=== PATIENT | female | born 2000 | race Caucasian/White ===

== ENCOUNTER 2022-11-19 04:38 | Emergency (ER) | payer OTHER ==
[2022-11-19 04:55] VITALS: BMI 29.6
[2022-11-19] MEDS ORDERED: ELECTROLYTE-148 SOLN 500 ML IV SCH ×2 (07:30→08:00)
[2022-11-19 08:03] VITALS: RESP 18
[2022-11-19 08:53] VITALS: BP 128/76; PULSE 70; TEMP 98.3
[2022-11-19 12:01] LABS: URINE APPEARANCE CLEAR; URINE BILIRUBIN NEGATIVE (NEGATIVE); URINE COLOR YELLOW; URINE GLUCOSE (UA) NEGATIVE (NEGATIVE); URINE KETONE NEGATIVE (NEGATIVE); URINE LEUK ESTERASE NEGATIVE (NEGATIVE); URINE NITRITE NEGATIVE (NEGATIVE); URINE PROTEIN NEGATIVE (NEGATIVE); URINE UROBILINOGEN 0.2 mg/dL (0.2-1.0)
[2022-12-16] MEDS ORDERED: FENTANYL CITRATE/PF 50 MCG/ML VIAL ONE (15:05)
[2022-12-16] MEDS ORDERED: LIDO 2%/EPI 1:200000 PRESRVFRE (20 ML SDVIAL) ONE ×2 (15:05)
[2022-12-16] MEDS ORDERED: BUPIVACAINE HCL/PF 0.25% (2.5MG/ML) 10 ML VIAL ONE (15:05)
== END 2022-11-19 09:30 | disposition home or self-care (01) ==
LOC: JER 04:38
PROC: 3E033GC Introduction of Other Therapeutic Substance into Peripheral Vein, Percutaneous Approach (ICD-10-PCS; principal; 2022-11-19)
PROC: 3E033GC Introduction of Other Therapeutic Substance into Peripheral Vein, Percutaneous Approach (ICD-10-PCS; 2022-11-19)
DX: O60.03 Preterm labor without delivery, third trimester (principal); O99.413 Diseases of the circulatory system complicating pregnancy, third trimester; R07.9 Chest pain, unspecified; Z3A.37 37 weeks gestation of pregnancy
CPT/HCPCS: 71046-TC-FY; 81003; 93005; 93010; 99285-25

== ENCOUNTER 2022-12-15 08:35 | Inpatient (IN) | payer OTHER ==
[2022-12-15] MEDS ORDERED: DINOPROSTONE 10 MG VAGINAL SUPPOSITORY VG STA ×2 (09:37→21:28)
[2022-12-15 09:59] VITALS: BMI 34.4
[2022-12-15] MEDS: ELECTROLYTE-148 SOLN 1,000 ML IV SCH ×3 (10:05→22:00)
[2022-12-15 11:12] LABS: INR 0.91 (0.83-1.09); PROTHROMBIN TIME (PATIENT) 10.6 SEC (9.7-13.0)
[2022-12-15 11:15] LABS: ACTIVATED PTT 28.4 SECONDS (25.2-36.5)
[2022-12-15 11:22] LABS: EOS % 1.2 % (0-4.5); HEMATOCRIT 32.5 % (32.4-45.2); HEMOGLOBIN 11.2 GM/dL (10.7-15.3); LYMPH % 31.4 % (8-40); MCH 29.5 pg (25.7-33.7); MCHC 34.6 g/dl (32.0-36.0); MEAN CELL VOLUME 85.4 fl (80-96); MEAN PLT VOLUME 9.6 fl (7.5-11.1); MONO % 7.8 % (3.8-10.2); NEUT % 58.6 % (42.8-82.8); PLATELET COUNT 281 10^3/uL (134-434); RBC 3.81 M/mm3 (3.60-5.2); RDW 14.2 % (11.6-15.6); WHITE BLOOD COUNT 8.4 K/mm3 (4.0-10.0)
[2022-12-15 11:28] LABS: CALCIUM 8.7 mg/dL (8.5-10.1)
[2022-12-15 11:29] LABS: BLOOD UREA NITROGEN 12.3 mg/dL (7-18)
[2022-12-15 11:32] LABS: CREATININE 0.5 mg/dL (0.55-1.3)
[2022-12-15] MEDS ORDERED: DINOPROSTONE 10 MG VAGINAL SUPPOSITORY VG ONE (21:25)
[2022-12-15] MEDS ORDERED: PROMETHAZINE HCL 25 MG/1 ML VIAL IVPB ONE (22:16)
[2022-12-15] MEDS ORDERED: BUTORPHANOL TARTRATE 1 MG/ML VIAL IVPB ONE (22:16)
[2022-12-16] MEDS: ELECTROLYTE-148 SOLN 1,000 ML IV SCH ×3 (06:00→16:17)
[2022-12-16] MEDS ORDERED: OXYTOCIN 30 UNITS in 0.9% NS 30 UNIT/500 ML INFUS.BAG IVPB ONE (11:28)
[2022-12-16] MEDS ORDERED: OXYTOCIN 30 UNITS in 0.9% NS 30 UNIT/500 ML INFUS.BAG IVPB SCH (11:30)
[2022-12-16] MEDS ORDERED: BUTORPHANOL TARTRATE 1 MG/ML VIAL ONE (12:57)
[2022-12-16] MEDS ORDERED: PROMETHAZINE HCL 25 MG/1 ML VIAL ONE (12:57)
[2022-12-16] MEDS ORDERED: FENTANYL/BUPIVACAINE/NS/PF - PCEA - 50 ML DISP.SYRIN EP ONE ×3 (14:59→22:19)
[2022-12-16] MEDS: FENTANYL/BUPIVACAINE/NS/PF - PCEA - 50 ML DISP.SYRIN EP SCH ×3 (15:05→22:20)
[2022-12-16] MEDS ORDERED: NALOXONE HCL 0.4 MG/ML VIAL IVPUSH PRN (17:29)
[2022-12-16] MEDS ORDERED: BUPIVACAINE HCL/PF 0.25% (2.5MG/ML) 10 ML VIAL ONE (18:36)
[2022-12-17] MEDS ORDERED: FENTANYL/BUPIVACAINE/NS/PF - PCEA - 50 ML DISP.SYRIN EP ONE (00:58)
[2022-12-17] MEDS ORDERED: FENTANYL CITRATE/PF 50 MCG/ML VIAL ONE ×5 (01:18→07:54)
[2022-12-17] MEDS ORDERED: CITRIC ACID/SODIUM CITRATE 30 ML UNIT-DOSE CUP PO ONE (03:20)
[2022-12-17] MEDS ORDERED: morphine SULFATE/PF 1 MG/2 ML (2cc Syringe - QUVA) ONE (03:56)
[2022-12-17] MEDS ORDERED: SODIUM CHLORIDE 0.9% P/F 10 ML VIAL IJ ONE (03:57)
[2022-12-17] MEDS ORDERED: ceFAZolin SODIUM 1 GM VIAL ONE (03:57)
[2022-12-17] MEDS ORDERED: PROPOFOL 20 ML ONE (04:48)
[2022-12-17] MEDS ORDERED: SUCCINYLCHOLINE CHLORIDE 200 MG/10 ML SYRINGE ONE (04:49)
[2022-12-17] MEDS ORDERED: ROCURONIUM BROMIDE 50 MG/5 ML VIAL ONE (04:49)
[2022-12-17] MEDS ORDERED: OXYTOCIN 10 UNITS/ML VIAL ONE ×3 (04:57→05:26)
[2022-12-17] MEDS: OXYTOCIN 20 UNITS in 0.9% NS 20 UNIT/1,000 ML INFUS.BAG IV SCH ×2 (04:59→17:24)
[2022-12-17] MEDS ORDERED: KETOROLAC TROMETHAMINE 30 MG/1 ML VIAL ONE (05:06)
[2022-12-17] MEDS ORDERED: ONDANSETRON 4 MG/2 ML VIAL ONE (05:06)
[2022-12-17] MEDS ORDERED: DEXAMETHASONE SOD PHOSPHATE 4 MG/1 ML VIAL ONE (05:06)
[2022-12-17] MEDS ORDERED: MIDAZOLAM HCL 2 MG/2 ML SINGLE DOSE VIAL ONE (05:24)
[2022-12-17] MEDS ORDERED: ONDANSETRON 4 MG/2 ML VIAL IVPUSH PRN (06:03)
[2022-12-17] MEDS ORDERED: PROMETHAZINE HCL 25 MG/1 ML VIAL IVPB PRN (06:03)
[2022-12-17] MEDS ORDERED: IBUPROFEN 800 MG/8 ML IJ IVPB PRN (06:04)
[2022-12-17] MEDS ORDERED: METHYLERGONOVINE MALEATE 0.2 MG/1 ML AMP IM PRN (06:10)
[2022-12-17] MEDS ORDERED: ACETAMINOPHEN 325 MG TABLET (FP) PO PRN (06:10)
[2022-12-17] MEDS ORDERED: LACTATED RINGERS SOLUTION 1,000 ML IV SCH (06:15)
[2022-12-17] MEDS ORDERED: ACETAMINOPHEN INJECTION 100 ML IVPB ONE (06:48)
[2022-12-17] MEDS: ACETAMINOPHEN 1000 MG/100 ML BAG IVPB PRN (06:50)
[2022-12-17 06:52] LABS: CORD BASE EXCESS -3.5 mmol/L (0-2); CORD HCO3 23.9 mmHg (20-29); CORD PCO2 50.8 mmHg (30-78); CORD pH 7.29 (7.14-7.44)
[2022-12-17 06:55] LABS: CORD BASE EXCESS -3.8 mmol/L (0-2); CORD HCO3 25.1 mmHg (20-29); CORD pH 7.239 (7.14-7.44)
[2022-12-17] MEDS ORDERED: HYDROmorphone HCl 2 MG/ML VIAL IVPUSH PRN (07:54)
[2022-12-17] MEDS: CEFAZOLIN SODIUM 2 GM in DEXTROSE 5%-WATER 100 ML IVPB SCH ×2 (09:55→17:21)
[2022-12-17] MEDS ORDERED: ceFAZolin 2 GRAM PREMIX BAG IVPB SCH (10:00)
[2022-12-17] MEDS: oxyCODONE HCL 5 MG TABLET PO PRN ×2 (17:20→22:38)
[2022-12-17] MEDS: SIMETHICONE 80 MG TAB.CHEW (FP) PO PRN (22:38)
[2022-12-18] MEDS: CEFAZOLIN SODIUM 2 GM in DEXTROSE 5%-WATER 100 ML IVPB SCH (01:09)
[2022-12-18] MEDS: ACETAMINOPHEN 1000 MG/100 ML BAG IVPB PRN (02:20)
[2022-12-18] MEDS ORDERED: BISACODYL 10 MG SUPP.RECT RC PRN (06:10)
[2022-12-18] MEDS: SIMETHICONE 80 MG TAB.CHEW (FP) PO PRN ×2 (07:48→16:44)
[2022-12-18] MEDS: oxyCODONE HCL 5 MG TABLET PO PRN ×2 (07:48→16:44)
[2022-12-18 08:48] LABS: BASO % 0.5 % (0-2.0); HEMATOCRIT 25.5 % (32.4-45.2); HEMOGLOBIN 8.9 GM/dL (10.7-15.3); LYMPH % 16.7 % (8-40); MCH 30.2 pg (25.7-33.7); MCHC 34.9 g/dl (32.0-36.0); MEAN CELL VOLUME 86.6 fl (80-96); MEAN PLT VOLUME 9.2 fl (7.5-11.1); NEUT % 75.8 % (42.8-82.8); PLATELET COUNT 193 10^3/uL (134-434); RBC 2.94 M/mm3 (3.60-5.2); RDW 14.4 % (11.6-15.6); WHITE BLOOD COUNT 16.5 K/mm3 (4.0-10.0)
[2022-12-18] MEDS: ENOXAPARIN NA (PORCINE) 40 MG/0.4 ML DISP.SYRIN SQ SCH (10:13)
[2022-12-18] MEDS: IBUPROFEN 600 MG TABLET (FP) PO PRN ×2 (10:14→22:06)
[2022-12-18] MEDS ORDERED: diphenhydrAMINE HCL 25 MG CAPSULE (FP) PO PRN (22:27)
[2022-12-18] MEDS: HYDROCORTISONE 1% TOPICAL CREAM 30 GM TUBE TP PRN (22:46)
[2022-12-19] MEDS: IBUPROFEN 600 MG TABLET (FP) PO PRN ×3 (06:16→21:31)
[2022-12-19] MEDS: SIMETHICONE 80 MG TAB.CHEW (FP) PO PRN (06:16)
[2022-12-19] MEDS: ENOXAPARIN NA (PORCINE) 40 MG/0.4 ML DISP.SYRIN SQ SCH (11:46)
[2022-12-19 20:38] VITALS: RESP 18
[2022-12-19] MEDS: HYDROCORTISONE 1% TOPICAL CREAM 30 GM TUBE TP PRN (20:39)
[2022-12-20] MEDS: IBUPROFEN 600 MG TABLET (FP) PO PRN (06:02)
[2022-12-20 08:07] LABS: BASO % 0.4 % (0-2.0); EOS % 2.5 % (0-4.5); HEMATOCRIT 27.3 % (32.4-45.2); HEMOGLOBIN 9.2 GM/dL (10.7-15.3); LYMPH % 18.5 % (8-40); MCH 29.4 pg (25.7-33.7); MCHC 33.6 g/dl (32.0-36.0); MEAN CELL VOLUME 87.4 fl (80-96); MEAN PLT VOLUME 8.2 fl (7.5-11.1); MONO % 5.8 % (3.8-10.2); NEUT % 72.8 % (42.8-82.8); PLATELET COUNT 298 10^3/uL (134-434); RBC 3.13 M/mm3 (3.60-5.2); RDW 14.3 % (11.6-15.6); WHITE BLOOD COUNT 11.8 K/mm3 (4.0-10.0)
[2022-12-20] MEDS: ENOXAPARIN NA (PORCINE) 40 MG/0.4 ML DISP.SYRIN SQ SCH (09:20)
[2022-12-20 09:58] VITALS: BP 121/79; PULSE 70; TEMP 97.9
== END 2022-12-20 14:55 | disposition home or self-care (01) | DRG 540 ==
LOC: JLDR 08:35 → J3W 12-17 08:15
PROVIDERS: ADMIT Obstetrics & Gynecology; ATTEND Obstetrics & Gynecology
PROC: 3E0P7VZ Introduction of Hormone into Female Reproductive, Via Natural or Artificial Opening (ICD-10-PCS; 2022-12-15)
PROC: 10D00Z1 Extraction of Products of Conception, Low, Open Approach (ICD-10-PCS; principal; 2022-12-17)
DX: O48.0 Post-term pregnancy (principal); O61.0 Failed medical induction of labor; O62.0 Primary inadequate contractions; Z3A.41 41 weeks gestation of pregnancy; Z37.0 Single live birth; Z86.59 Personal history of other mental and behavioral disorders
CPT/HCPCS: 36415; 36600; 80048; 82803; 85025; 85610; 85730; 86780; 86850; 86900; 86901; 88307-TC; 94010; C9803-CS; U0003; U0005

== ENCOUNTER 2023-07-17 11:04 | Emergency (ER) | payer OTHER ==
[2023-07-17 11:09] VITALS: BP 142/76; RESP 18; TEMP 99; BMI 33.0
[2023-07-17] MEDS ORDERED: ACETAMINOPHEN 500 MG TABLET (FP) PO ONE (12:55)
[2023-07-17] MEDS ORDERED: ACETAMINOPHEN 500 MG TABLET (FP) ONE (12:58)
[2023-07-17 13:46] VITALS: PULSE 89
== END 2023-07-17 14:28 | disposition home or self-care (01) ==
LOC: JERFT 11:04 → JER 11:04 → JERFT 14:28
DX: R09.81 Nasal congestion (principal); J02.9 Acute pharyngitis, unspecified; J39.2 Other diseases of pharynx; J06.9 Acute upper respiratory infection, unspecified; Z20.822 Contact with and (suspected) exposure to COVID-19
CPT/HCPCS: 0241U-QW; 99283-25